=== PATIENT | female | born 1980 | race Two or more races ===

== ENCOUNTER 2019-05-01 10:55 | Emergency (ER) | payer OTHER ==
[~2019-05-01] VITALS: Ht 170.2 cm; Wt 54.4 kg
[2019-05-01 11:10] VITALS: BP 112/74
== END 2019-05-01 11:54 | disposition home or self-care (01) ==
LOC: ER 11:00
DX: H60.93 Unspecified otitis externa, bilateral (principal); Z98.890 Other specified postprocedural states; Z60.2 Problems related to living alone